=== PATIENT | female | born 1980 | race African-American/Black ===

== ENCOUNTER 2018-02-24 16:32 | Emergency (ER) | payer OTHER ==
[~2018-02-24] VITALS: Ht 170.2 cm; Wt 97.5 kg
[2018-02-24 16:53] VITALS: BP 134/85
--- NOTE | 2018-02-24 17:00 | PHYS DOC ---
Past Medical History Past Medical History: No Pertinent History Past Surgical History: Other Additional Past Surgical Histo: HERNIA Alcohol Use: Occasionally Drug Use: None Adult General Chief Complaint Chief Complaint: SORE THROAT HPI HPI Patient is a 37 year old female who presents with sore throat, nasal congestion and drainage. She denies earaches or fever. She denies body aches. Review of Systems Review of Systems Constitutional: Denies fever or chills [] Eyes: Denies change in visual acuity, redness, or eye pain [] HENT: See history of present illness Respiratory: Denies cough or shortness of breath [] Cardiovascular: No additional information not addressed in HPI [] GI: Denies abdominal pain, nausea, vomiting, bloody stools or diarrhea [] : Denies dysuria or hematuria [] Musculoskeletal: Denies back pain or joint pain [] Integument: Denies rash or skin lesions [] Neurologic: Denies headache, focal weakness or sensory changes [] Endocrine: Denies polyuria or polydipsia [] All other systems were reviewed and found to be within normal limits, except as documented in this note. Physical Exam Physical Exam Constitutional: Well developed, well nourished, no acute distress, non-toxic appearance. [] HENT: Normocephalic, atraumatic, bilateral tympanic membranes normal, oropharynx moist, no oral exudates, nares are erythematous with nasal drainage noted Eyes: PERRLA, EOMI, conjunctiva normal, no discharge. [] Neck: Normal range of motion, no tenderness, supple, no stridor. [] Cardiovascular:Heart rate regular rhythm, no murmur [] Lungs & Thorax: Bilateral breath sounds clear to auscultation [] Neurologic: Alert and oriented X 3, normal motor function, normal sensory function, no focal deficits noted. [] Psychologic: Affect normal, judgement normal, mood normal. [] Current Patient Data Vital Signs Vital Signs Date Time Temp Pulse Resp B/P (MAP) Pulse Ox O2 Delivery O2 Flow Rate FiO2 02/24/18 16:53 97.9 79 18 134/85 (101) 100 Room Air 97.9 EKG EKG [] Radiology/Procedures Radiology/Procedures [] Course & Med Decision Making Course & Med Decision Making Pertinent Labs and Imaging studies reviewed. (See chart for details) []The patient's rapid strep is negative. Dragon Disclaimer Dragon Disclaimer This electronic medical record was generated, in whole or in part, using a voice recognition dictation system. Departure Departure Impression: Primary Impression: URI (upper respiratory infection) Disposition: 01 HOME, SELF-CARE Condition: STABLE Patient Instructions: Upper Respiratory Infection, Adult Additional Instructions: You may take [id number] cough and cold medication. Follow-up with your primary care provider in one week if not improving or return to the emergency department if worsening. GLENN MASSEY APRN Feb 24, 2018 17:00
== END 2018-02-24 17:14 | disposition home or self-care (01) ==
LOC: ER 16:32
DX: J06.9 Acute upper respiratory infection, unspecified (principal)
CPT/HCPCS: 87070; 87880; 99283